=== PATIENT | male | born 1955 | race Caucasian/White ===

== ENCOUNTER 2021-05-01 06:31 | Emergency (ER) | payer MEDICARE, SELFPAY ==
[2021-05-01 06:43] LABS: Glucose Point of Care 215 mg/dl (65-105)
[2021-05-01 06:45] VITALS: BP 140/84; PULSE 71; RESP 16; TEMP 36.9; O2SAT 98
--- NOTE | 2021-05-01 07:36 | ED.GENADULT ---
HPI - General Adult General Chief complaint: Recheck/Abnormal Lab/Rx Stated complaint: Low blood sugar Time Seen by Provider: 05/01/21 07:01 History of Present Illness HPI narrative: Patient is a 65-year-old male with history of type 2 diabetes who takes Metformin daily that presents to the ER with concern of low blood sugar. His Accu-Chek is showing readings in the 40s and now says low. Accu-Chek here shows a blood glucose of 210. He reports no symptoms including sweats/nausea/diaphoresis/confusion. Reports he has been eating doughnuts for the last day to keep his blood sugar her up despite his Accu-Cheks and gets low. Related Data Allergies Allergy/AdvReac Type Severity Reaction Status Date / Time rosuvastatin Allergy Unknown Unknown Verified 03/10/20 09:13 Review of Systems Review of Systems: All systems reviewed & are unremarkable except as noted in HPI and below Constitutional: Constitutional: Denies chills, Denies fever(s) and Denies weakness Gastrointestinal: Gastrointestinal: Denies abdominal pain, Reports diarrhea, Denies nausea and Denies vomiting Genitourinary: Genitourinary: Denies dysuria and Denies urinary frequency Neurologic: Denies focal weakness and Denies numbness PMFSH Past Medical History Medical History (Updated 05/01/21 @ 07:42 by Venkat Lee MD) Chronic thoracic back pain Coronary artery disease involving [place] coronary artery of [place] heart DM w/o complication type II, uncontrolled Mixed hyperlipidemia Family History Family History Father Cerebrovascular accident Family history of coronary artery disease Mother Family history of diabetes mellitus in first degree relative Social History Social History Smoking status: Never smoker Alcohol intake: never Exam Narrative: Exam Narrative: GENERAL: Well-appearing, well-nourished, and in no acute distress. HEAD: Normocephalic, atraumatic. EYES: PERRL and EOMI. CHEST: Clear to auscultation. No respiratory distress. HEART: Regular rate and rhythm. Normal peripheral pulses. ABDOMEN: Soft, nontender, nondistended. EXTREMITIES: Normal range of motion. No edema. NEURO: Alert and oriented x3. PSYCH: Normal mood and affect. Course Course Emergency Course: Patient without symptoms. Blood sugar is not at a critical level. Recommended patient that he change his sensor site. Also prescribe some additional blood testing supplies. Vital Signs Vital signs: Vital Signs Temperature 98.4 F 05/01/21 06:45 Pulse Rate 71 05/01/21 06:45 Respiratory Rate 16 05/01/21 06:45 Blood Pressure 140/84 05/01/21 06:45 Pulse Oximetry 98 05/01/21 06:45 Temperature 98.4 F 05/01/21 06:45 Pulse Rate 71 05/01/21 06:45 Respiratory Rate 16 05/01/21 06:45 Blood Pressure 140/84 05/01/21 06:45 Pulse Oximetry 98 05/01/21 06:45 Medical Decision Making Vital Signs Vital Signs: Vital Signs Temperature 98.4 F 05/01/21 06:45 Pulse Rate 71 05/01/21 06:45 Respiratory Rate 16 05/01/21 06:45 Blood Pressure 140/84 05/01/21 06:45 Pulse Oximetry 98 05/01/21 06:45 Temperature 98.4 F 05/01/21 06:45 Pulse Rate 71 05/01/21 06:45 Respiratory Rate 16 05/01/21 06:45 Blood Pressure 140/84 05/01/21 06:45 Pulse Oximetry 98 05/01/21 06:45 Lab Data Labs: Lab Results 05/01/21 Range/Units 06:40 POC Capillary Glucose 215 H (65-105) mg/dl Discharge Plan Discharge Clinical Impression: Elevated blood sugar Patient Disposition: Home, Self-Care Condition: Stable Instructions: Diabetic Hyperglycemia (ED) Additional Instructions: Resume your home Metformin. Purchase new blood testing supplies. Return the ER if you cannot keep down food or water, you have fever over 100.4 ?F, you have focal weakness or numbness in arm or leg, you have additional concerns. Prescript
[2021-05-01 07:48] VITALS: BP 139/80; PULSE 69; RESP 18; O2SAT 100
== END 2021-05-01 07:53 | disposition home or self-care (01) ==
PROVIDERS: Emergency Provider Emergency Medicine; PCP Family Medicine
DX: E11.649 Type 2 diabetes mellitus with hypoglycemia without coma (principal); I25.10 Atherosclerotic heart disease of native coronary artery without angina pectoris; E78.5 Hyperlipidemia, unspecified; Z79.84 Long term (current) use of oral hypoglycemic drugs
CPT/HCPCS: 82948; 99282

== ENCOUNTER 2021-08-04 01:58 | Day surgery (SDC) | payer MEDICARE, SELFPAY ==
[2021-07-26 09:39] VITALS: BMI 28.7
--- NOTE | 2021-08-04 10:00 | P.HP_ITS ---
History of Present Illness History of Present Illness Consent: Risks, benefits, and alternatives have been discussed and questions answered. Patient agrees to proceed with procedure. Chief complaint: neoplasm screening Narrative: Lion Buenrostro is a 65 year old male who is referred for colon cancer screening. Review of Systems Review of Systems: All systems reviewed & are unremarkable except as noted in HPI and below PMFSH Past Medical History Medical History BMI 29.0-29.9,adult Chronic thoracic back pain Coronary artery disease involving [place] coronary artery of [place] heart DM w/o complication type II, uncontrolled Mixed hyperlipidemia Screen for colon cancer Family History Family History Father Cerebrovascular accident Family history of coronary artery disease Mother Family history of diabetes mellitus in first degree relative Social History Social History Smoking status: Never smoker Alcohol intake: current Living arrangements: with family Spiritual care concerns: No Meds Home Medications and Allergies Home Medications Medication Instructions Recorded Confirmed Type flash glucose sensor #6 ea 02/07/21 07/25/21 Rx pravastatin 40 mg tablet 40 mg PO DAILY #90 tablet 03/20/21 07/26/21 Rx blood sugar diagnostic [FreeStyle #100 ea 05/01/21 07/25/21 Rx Test] flash glucose scanning reader #1 ea 05/01/21 07/25/21 Rx [FreeStyle B[place]bara 14 Day [place]] flash glucose sensor [FreeStyle #1 ea 05/01/21 07/25/21 Rx Bárbara 14 Day Sensor] lancets [FreeStyle Lancets] #100 ea 05/01/21 07/25/21 Rx dulaglutide 0.75 mg/0.5 mL 0.75 mg SUBCUT WEEKLY #2 ml 07/25/21 07/26/21 Rx subcutaneous pen injector meloxicam 15 mg tablet 15 mg PO DAILY #30 tablet 07/25/21 07/26/21 Rx metformin 1,000 mg PO BID 07/26/21 07/26/21 History Allergies Allergy/AdvReac Type Severity Reaction Status Date / Time rosuvastatin Allergy Unknown Unknown Verified 08/04/21 10:04 Exam Resp: Auscultation: clear to auscultation bilaterally Cardio: Rate: regular rate Rhythm: regular rhythm GI: GI Palp: Yes Soft to palpation and No Tenderness to palpation present (GI) Assessment and Plan Assessment and plan (1) Screen for colon cancer: Code(s): Z12.11 - Encounter for screening for malignant neoplasm of colon Status: Acute Assessment and Plan: Colonoscopy with possible biopsy or polypectomy or cautery or injection of substances.
[2021-08-04 10:07] VITALS: BP 148/81; PULSE 82; RESP 16; TEMP 36.2; O2SAT 98; BMI 29.5
[2021-08-04] MEDS: LACTATED RINGERS 1,000 ML 150 ML IV CONT (10:23)
[2021-08-04 10:25] LABS: Glucose Point of Care 154 mg/dl (65-105)
--- NOTE | 2021-08-04 10:45 | P.PNAN_ITS ---
Anes - Initial Pre Proc Eval Procedure: Operation Date: 08/04/21 10:30 Proposed Procedures p Screening Colonoscopy - Edmond Herrera MD Date/Time: 08/04/21 10:45 Surgeon: Edmond Herrera MD Pre Op Diagnosis: neoplasm screening Patient Data Age: 65 Gender: M Height: 1.75 m Weight: 90.8 kg Last Vital Signs Temp 97.1 F L 08/04/21 10:07 Pulse 82 08/04/21 10:07 Resp 16 08/04/21 10:07 BP 148/81 H 08/04/21 10:07 Pulse Ox 98 08/04/21 10:07 Allergies Allergy/AdvReac Type Severity Reaction Status Date / Time rosuvastatin Allergy Unknown Unknown Verified 08/04/21 10:04 Home Medications Medication Instructions Recorded Confirmed Type flash glucose sensor #6 ea 02/07/21 07/25/21 Rx pravastatin 40 mg tablet 40 mg PO DAILY #90 tablet 03/20/21 08/04/21 Rx blood sugar diagnostic [FreeStyle #100 ea 05/01/21 07/25/21 Rx Test] flash glucose scanning reader #1 ea 05/01/21 07/25/21 Rx [FreeStyle B[place]bara 14 Day [place]] flash glucose sensor [FreeStyle #1 ea 05/01/21 07/25/21 Rx Bárbara 14 Day Sensor] lancets [FreeStyle Lancets] #100 ea 05/01/21 07/25/21 Rx dulaglutide 0.75 mg/0.5 mL 0.75 mg SUBCUT WEEKLY #2 ml 07/25/21 08/04/21 Rx subcutaneous pen injector meloxicam 15 mg tablet 15 mg PO DAILY #30 tablet 07/25/21 08/04/21 Rx metformin 1,000 mg PO BID 07/26/21 08/04/21 History Laboratory Tests 08/04/21 10:19 POC Capillary Glucose 154 mg/dl H mg/dl (65-105) Patient hx anesthesia problems: none Family hx anesthesia problems: none Results Review: All pre-operative results and documents have been reviewed as part of the pre-operative evaluation. [facility] Past Medical History Medical History BMI 29.0-29.9,adult Chronic thoracic back pain Coronary artery disease involving [place] coronary artery of [place] heart DM w/o complication type II, uncontrolled Mixed hyperlipidemia Screen for colon cancer Family History Family History Father Cerebrovascular accident Family history of coronary artery disease Mother Family history of diabetes mellitus in first degree relative Social History Social History Smoking status: Never smoker Alcohol intake: current Living arrangements: with family Spiritual care concerns: No Anes - Eval Final PreProcedure Day of Procedure 08/04/21 10:45 Patient weight: obese Heart: regular rate and rhythm Lungs: clear to auscultation Airway: Mallampati scale class II Neurological: alert and oriented Last oral intake: >/= 8 hours ASA classification: III Emergent: no Anesthetic plan: proceed Anesthesia type and monitoring: general GIVS and standard monitoring Results Review: All pre-operative results and documents have been reviewed as part of the pre-operative evaluation. Informed Consent: The patient's anesthetic plan and its attendant risks and benefits were discussed with the patient/family/POA. Questions were solicited and answers provided to the satisfaction of the patient/family/POA.
[2021-08-04 11:00] VITALS: BP 125/72; PULSE 79; RESP 18; O2SAT 95
[2021-08-04 11:10] VITALS: BP 114/74; PULSE 76; RESP 18; O2SAT 97
[2021-08-04 11:20] VITALS: BP 126/81; PULSE 76; RESP 18; O2SAT 96
== END 2021-08-04 11:34 | disposition home or self-care (01) ==
PROVIDERS: PCP Family Medicine; Visit Provider Internal Medicine Gastroenterology
PROC: 0DJD8ZZ Inspection of Lower Intestinal Tract, Via Natural or Artificial Opening Endoscopic (ICD-10-PCS; CPT 45378; principal; 2021-08-04 10:30)
DX: Z12.11 Encounter for screening for malignant neoplasm of colon (principal); K57.30 Diverticulosis of large intestine without perforation or abscess without bleeding; Z79.84 Long term (current) use of oral hypoglycemic drugs; E11.9 Type 2 diabetes mellitus without complications; I25.10 Atherosclerotic heart disease of native coronary artery without angina pectoris; E78.2 Mixed hyperlipidemia; E66.9 Obesity, unspecified; Z68.29 Body mass index [BMI] 29.0-29.9, adult
CPT/HCPCS: G0121; 82948; J2704; J7120

== ENCOUNTER 2021-08-07 15:44 | Emergency (ER) | payer MEDICARE, SELFPAY ==
--- NOTE | ~2021-08-07 | XR_ITS ---
EXAMINATION: XR tibia fibula LT 2V DATE: 08/07/2021 16:23 INDICATION: Left lower leg injury. TECHNIQUE: 2 views of left tibia and fibula were obtained. COMPARISON: None. FINDINGS: Bone alignment is normal. No fracture. There is mild left knee osteoarthritis. There are de la cruz rgical clips in the medial distal lower leg. There is soft tissue swelling anterior to the proximal t ibial diaphysis. IMPRESSION: 1. Mild left knee osteoarthritis. Reviewed, dictated and finalized at location A.
[2021-08-07 15:53] VITALS: BP 140/70; PULSE 74; RESP 18; TEMP 36.7; O2SAT 99
--- NOTE | 2021-08-07 15:53 | ED.LOWEXIN ---
HPI - Extremity Injury (Lower) General Chief Complaint: Extremity Injury, Lower Stated Complaint: Lt lower leg Time Seen by Provider: 08/07/21 16:34 Source: patient and RN notes reviewed Mode of arrival: ambulatory Limitations: no limitations History of Present Illness HPI Narrative: 65-year-old male presents with concern for injury to the left lower leg. Reports prior to arrival he had a heavy car battery fall out of the car and hit his leg. He reports a large painful lump on the front of his leg. He denies intervention. Denies pain worsens with weightbearing. Denies distal pain, decreased sensation, decreased range of motion MD complaint: leg injury Related Data Allergies Allergy/AdvReac Type Severity Reaction Status Date / Time No Known Allergies Allergy Verified 08/07/21 16:14 Review of Systems Review of Systems: CONSTITUTIONAL: Denies malaise, chills, sweats, or fever. SKIN: Reports swollen painful bump with a abrasion to the front of the left lower leg MUSCULOSKELETAL: Reports left lower leg pain NEUROLOGIC: Denies numbness, weakness All systems reviewed & are unremarkable except as noted in HPI and below PMFSH Past Medical History Medical History BMI 29.0-29.9,adult Chronic thoracic back pain Coronary artery disease involving [place] coronary artery of [place] heart DM w/o complication type II, uncontrolled Mixed hyperlipidemia Screen for colon cancer Family History Family History Father Cerebrovascular accident Family history of coronary artery disease Mother Family history of diabetes mellitus in first degree relative Social History Social History Smoking status: Never smoker Alcohol intake: current Spiritual care concerns: No Comments At time of signature, agree with nursing past medical, surgical, social and family history. There is no relevant family history pertinent to the presenting complaint Exam Narrative: GENERAL: Well-appearing, well-nourished, and in no acute distress. HEAD: Normocephalic, atraumatic. EYES: PERRLA, conjunctivae clear NECK: Supple. CHEST: Speaks in full sentences. No respiratory distress. HEART: Regular rate and rhythm. Normal and equal peripheral pulses. EXTREMITIES: Left lower leg has grossly normal strength, grossly normal range of motion. 10 cm x 6 cm hematoma noted to the mid anterior lower left leg. No no devitalized tissue or atrophy, no trophic changes, alignment normal, nearby joints and structures intact. Skin warm, dry, pink. SKIN: Warm, dry, no rash. Superficial abrasion noted to the anterior mid lower left leg NEURO: Alert and oriented x3. PSYCH: Normal mood and affect Course Course Emergency Course: Patient is aware of diagnosis, understands and agrees to treatment plan. Anticipatory guidance given. Patient agrees to follow-up as directed and is aware of reasons to seek care at the emergency department. Portions of this record may have been created with voice recognition software Vital Signs Vital signs: Reviewed. MDM - Extremity Injury (Lower) MDM Narrative Medical decision making narrative: Exam findings and imaging show no acute concerns or changes; patient is non-toxic appearing and is in no distress. Patient is appropriate for outpatient treatment and follow-up. Imaging Data Radiologist's impression: EXAMINATION: XR tibia fibula LT 2V DATE: 08/07/2021 16:23 INDICATION: Left lower leg injury. TECHNIQUE: 2 views of left tibia and fibula were obtained. COMPARISON: None. FINDINGS: Bone alignment is normal. No fracture. There is mild left knee osteoarthritis. There are surgical clips in the medial distal lower leg. There is soft tissue swelling anterior to the proximal tibial diaphysis. IMPRESSION: 1. Mild left knee osteoarthritis. Critical Care Time Critical Care Time Crit
== END 2021-08-07 16:49 | disposition home or self-care (01) ==
PROVIDERS: Emergency Provider Nurse Practitioner; PCP Family Medicine
DX: S80.12XA Contusion of left lower leg, initial encounter (principal); W20.8XXA Other cause of strike by thrown, projected or falling object, initial encounter; E11.9 Type 2 diabetes mellitus without complications; E78.2 Mixed hyperlipidemia; I25.10 Atherosclerotic heart disease of native coronary artery without angina pectoris
CPT/HCPCS: 73590; 99213; G0463

== ENCOUNTER → 2021-12-15 09:24 | Outpatient (CLI) | payer MEDICARE, SELFPAY ==
--- NOTE | ~2021-12-15 | MR_ITS ---
EXAMINATION: MR cervical spine wo con EXAM DATE: 12/15/2021 10:09 INDICATION: M54.2 - Cervicalgia . TECHNIQUE: Multi-sequential, multiplanar MR images of the cervical spine were obtained without contra st. Axial T2, axial T2 MERGE sequence. Sagittal T1, T2, T2 fat saturation images also obtained. Th ere is no prior study for comparison. FINDINGS: The vertebral bodies are aligned in the AP dimension. In there is mild to moderate cervica l disc disease at C3-4, 5-6 and 6-7. The spinal cord signal intensity and intrinsic morphology is nor mal. Cervicomedullary junction is normal in appearance. There are no suspicious marrow signal abnorma lities. Paraspinal soft tissue is unremarkable. Level by level evaluation: C2-C3: Disc does not extend beyond the endplate margin. Uncovertebral joint arthropathy: None. Facet joint arthropathy: Mild. Neural foraminal stenosis: No stenosis. Central canal stenosis: No stenosis. C3-C4: There is a mild diffuse disc bulge. Uncovertebral joint arthropathy: Mild to moderate bilateral. Facet joint arthropathy: Mild bilateral. Neural foraminal stenosis: Moderate right, mild to moderate left. Central canal stenosis: Mild. C4-C5: Disc does not extend beyond the endplate margin. Uncovertebral joint arthropathy: Mild bilateral. Facet joint arthropathy: Mild bilateral. Neural foraminal stenosis: No stenosis. Central canal stenosis: No stenosis. C5-C6: There is a mild diffuse disc bulge. Uncovertebral joint arthropathy: Moderate to severe right, mild to moderate left. Facet joint arthropathy: Mild to moderate bilateral. Neural foraminal stenosis: Moderate to severe right, mild left. Central canal stenosis: Mild. C6-C7: There is a mild diffuse disc bulge. Uncovertebral joint arthropathy: Moderate to severe right, moderate left. Facet joint arthropathy: Mild bilateral. Neural foraminal stenosis: Moderate to severe right, mild to moderate left. Central canal stenosis: Mild. C7-T1: Disc does not extend beyond the endplate margin. Uncovertebral joint arthropathy: Mild to moderate right, mild left. Facet joint arthropathy: Moderate right, mild left. Neural foraminal stenosis: Mild right. Central canal stenosis: No stenosis. IMPRESSION: 1. C5-6 and 6-7 moderate to severe right neural foraminal stenosis. 2. Less spondylosis other levels. Reviewed, dictated and finalized at location B. 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
--- NOTE | ~2021-12-15 | CT_ITS ---
EXAMINATION: CT abdomen pelvis w con DATE: 12/15/2021 10:31 INDICATION: Left upper quadrant abdominal pain TECHNIQUE: Computed tomography (CT) of the abdomen and pelvis was performed with 100 cc Omnipaque 350 intravenous contrast. Automated exposure control and iterative reconstruction technique were employe d. Exam dose: 795.98 mGy-cm total exam DLP. COMPARISON: None. FINDINGS: There is a linear discoid density in the left lower lobe consistent with scarring or less l ikely discoid atelectasis. The lung bases are clear of infiltrate or consolidation. Status post sternotomy. Heart size is within normal range. No pericardial or pleural effusion. Small sliding hiatal hernia. The liver, gallbladder, bile ducts, spleen, pancreas, pancreatic duct, adrenal glands and kidneys faustino ear normal. 3 cm duodenal diverticulum. Normal caliber of the abdominal aorta. No intraperitoneal or retroperitoneal or pelvic mass lesion or adenopathy or ascites. There is prostate enlargement and calcification. The prostate impresses the base of the urinary bladd er. There is mild diffuse bladder wall thickening. There are numerous diverticula of the sigmoid and descending colon and a diverticulum at the splenic flexure and another at the hepatic flexure. No CT evidence of diverticulitis. Normal appendix. No bowel wall thickening,, pneumatosis or bowel obstruction or intraperitoneal free air. Small fat-containing umbilical hernia. Small fat-containing left inguinal hernia. No suspicious osteolytic or osteoblastic lesions are noted. This mild degenerative change of the thor acic and lumbar spine and hips. IMPRESSION: Small sliding hiatal hernia 3 cm duodenal diverticulum Diverticulosis of the colon; no CT evidence of diverticulitis Prostate enlargement and calcification Reviewed, dictated and finalized at Location [facility]. Reviewed, dictated and finalized at location A. 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
[2021-12-15 10:24] LABS: Estimated Glomerular Filt Rate > 60
== END ==
PROVIDERS: PCP Family Medicine; Visit Provider Family Medicine
DX: R10.12 Left upper quadrant pain (principal); M54.2 Cervicalgia; K44.9 Diaphragmatic hernia without obstruction or gangrene; K57.10 Diverticulosis of small intestine without perforation or abscess without bleeding; K57.30 Diverticulosis of large intestine without perforation or abscess without bleeding; N40.1 Benign prostatic hyperplasia with lower urinary tract symptoms
CPT/HCPCS: 72141; 74177; Q9967

== ENCOUNTER 2022-05-13 12:53 | Emergency (ER) | payer MEDICARE, SELFPAY ==
[2022-05-13 13:14] VITALS: BP 134/69; PULSE 71; RESP 18; TEMP 36.8; O2SAT 98
--- NOTE | 2022-05-13 13:25 | ED.GENADULT ---
HPI - General Adult General Chief complaint: Skin/Abscess/Foreign Body Stated complaint: insect bite Time Seen by Provider: 05/13/22 13:26 Source: patient Mode of arrival: ambulatory Limitations: no limitations History of Present Illness HPI narrative: 66-year-old male patient presents to the [facility] with what he thinks might be a bug bite to the right inner upper thigh. Patient states is been there for about 2 days now. Denies pulling any ticks off of him and states that he has not been in the [place] or being outside doing any type of mowing or yard work. Patient states that it does itch but denies any fevers, body aches, chills or any other sick symptoms. Patient states he is concerned because his son has had Lyme disease before in the past and he wanted to make sure this was not Lyme's disease. Related Data Allergies Allergy/AdvReac Type Severity Reaction Status Date / Time No Known Allergies Allergy Verified 05/13/22 13:22 Review of Systems Review of Systems: CONSTITUTIONAL: Denies fever, chills, or sweats. EYES: Denies visual changes, redness, or discharge. ENT: Denies rhinorrhea, congestion, sore throat, or otalgia. CARDIOVASCULAR: Denies chest pain, palpitations, or edema. RESPIRATORY: Denies cough or dyspnea. GASTROINTESTINAL: Denies abdominal pain, nausea, vomiting, or diarrhea. GENITOURINARY: Denies dysuria or hematuria. SKIN: Positive rash with itching to right upper thigh MUSCULOSKELETAL: Denies back pain, joint pain, or myalgia. NEUROLOGIC: Denies headache, numbness, or weakness. PSYCHIATRIC: Denies anxiety or depression. [facility] Past Medical History Medical History Abnormal MRI, cervical spine BMI 29.0-29.9,adult Cervical pain (neck) Chronic thoracic back pain Coronary artery disease involving [place] coronary artery of [place] heart (Unknown) DM w/o complication type II, uncontrolled LUQ abdominal pain Mixed hyperlipidemia Screen for colon cancer Family History Family History Father Cerebrovascular accident Family history of coronary artery disease Mother Family history of diabetes mellitus in first degree relative Social History Social History Alcohol intake: current Spiritual care concerns: No Comments At the time of my signature I agree with nursing past medical history, surgical, social, and family history. There is no relevant family history pertinent to the presenting complaint. Exam Narrative: GENERAL: Well-appearing, well-nourished, and in no acute distress. HEAD: Normocephalic, atraumatic. EYES: PERRLA and EOMI. ENT: Nares clear, no rhinorrhea or epistaxis. Mucous membranes moist. NECK: Supple. No lymphadenopathy CHEST: Clear to auscultation. No respiratory distress. HEART: Regular rate and rhythm. No murmur heard. Normal peripheral pulses. ABDOMEN: Soft, nontender, nondistended, normal active bowel sounds. EXTREMITIES: Normal range of motion. No edema. SKIN: Warm, dry, patient has an erythemic circular rash with notable satellite areas around the area with what appears to be somewhat of a clearing center. Measuring about 2 cm x 2 cm. Slightly raised. Patient does complain of itching to the area. No open wounds or drainage noted at this time. NEURO: No focal deficits. Alert and oriented x3. Course Course Level of Care: Express Care Visit Vital Signs Vital signs: Vital Signs Temperature 36.8 C 05/13/22 13:14 Pulse Rate 71 05/13/22 13:14 Respiratory Rate 18 05/13/22 13:14 Blood Pressure 134/69 05/13/22 13:14 Pulse Oximetry 98 05/13/22 13:14 Oxygen Delivery Room Air 05/13/22 13:14 Temperature 36.8 C 05/13/22 13:14 Pulse Rate 71 05/13/22 13:14 Respiratory Rate 18 05/13/22 13:14 Blood Pressure 134/69 05/13/22 13:14 Pulse Oximetry 98 05/13/22 13:14 Oxygen Delivery Room
== END 2022-05-13 13:38 | disposition home or self-care (01) ==
PROVIDERS: Emergency Provider Nurse Practitioner Family; PCP Family Medicine
DX: B35.4 Tinea corporis (principal); I25.10 Atherosclerotic heart disease of native coronary artery without angina pectoris; E11.9 Type 2 diabetes mellitus without complications; E78.2 Mixed hyperlipidemia
CPT/HCPCS: 99213; G0463

== ENCOUNTER 2023-06-21 13:27 | Emergency (ER) | payer MEDICARE, SELFPAY ==
--- NOTE | 2023-06-21 13:33 | ED.GENADULT ---
HPI - General Adult General Chief complaint: Back Pain/Injury Stated complaint: back pain Time Seen by Provider: 06/21/23 13:42 Source: patient, RN notes reviewed and old records reviewed Mode of arrival: ambulatory Limitations: no limitations History of Present Illness HPI narrative: 67-year-old male presents to the [facility] with complaints of mid right back pain for 2 weeks. States that aspirin makes it a little bit better. Denies any numbness or tingling. No direct injury. Walks with a normal gait. States he has tried calling his primary care the office close States he has been moving heavy objects recently Onset (ago): week(s) (2) Related Data Allergies Allergy/AdvReac Type Severity Reaction Status Date / Time No Known Allergies Allergy Verified 06/21/23 13:53 Review of Systems Review of Systems: All systems reviewed & are unremarkable except as noted in HPI and below Constitutional: Constitutional: Reports no additional constitutional complaints Eyes: Eyes: Reports no additional eye complaints ENT: Reports system reviewed and no additional complaints, except as documented Cardiovascular: Cardiovascular: Reports no additional cardiovascular complaints, Denies chest pain and Denies dyspnea Respiratory: Respiratory: Reports no additional respiratory complaints, Denies chest congestion, Denies cough and Denies dyspnea Gastrointestinal: Gastrointestinal: Reports no additional gastrointestinal complaints, Denies abdominal pain, Denies nausea and Denies vomiting Musculoskeletal: Musculoskeletal: Reports as per HPI and Reports back pain Integumentary/Breasts: Skin/Breast: Reports system reviewed and no additional complaints, except as docu Neurologic: Reports system reviewed and no additional complaints, except as documented Psychiatric: Psychiatric: Reports no additional psychiatric complaints Allergic/Immunologic: Allergic/Immunologic: Reports no additional allergic/immunologic complaints [facility] Past Medical History Medical History Abnormal MRI, cervical spine BMI 27.0-27.9,adult BMI 29.0-29.9,adult Cervical pain (neck) Chronic thoracic back pain Coronary artery disease involving nome coronary artery of nome heart (Unknown) Dermatitis Diabetic retinopathy DM w/o complication type II, uncontrolled LUQ abdominal pain Mixed hyperlipidemia Screen for colon cancer Stressful life events affecting family and household Family History Family History Father Cerebrovascular accident Family history of coronary artery disease Mother Family history of diabetes mellitus in first degree relative Social History Social History Smoking status: Never smoker Alcohol intake: current Living arrangements: with family Spiritual care concerns: No Comments At the time of my signature, I reviewed and agree with the nursing past medical, surgical, social, and family history. There is no relevant family history pertinent to the patient complaint. Exam Const: General: cooperative, healthy appearing, comfortable, no acute distress, well developed, alert and well nourished Nutritional Appearance: well nourished Orientation/consciousness: patient oriented x3 Limitations: no limitations HENMT: Head: normal to inspection Ears: hearing grossly normal bilaterally and external ears normal Face/Nose/Sinus: Normal external nose present, Normal nares present, Normal nasal mucous membranes and turbinates present and normal facial exam Face and sinus: normal facial exam Eyes: General: appearance normal, both eyes and all related structures Alignment and Position: alignment normal Periorbital: periorbital findings normal Pupils: Equal, round and reactive pupils present EOM: EOMs intact bilaterally Neck: Neck: normal visual inspection, full ROM, no lymphadenopathy and no meningeal signs Chest: Chest palpati
[2023-06-21 13:48] VITALS: BP 129/62; PULSE 71; RESP 18; TEMP 36.2; O2SAT 97
== END 2023-06-21 13:58 | disposition home or self-care (01) ==
PROVIDERS: Emergency Provider Nurse Practitioner; PCP Family Medicine
DX: S29.012A Strain of muscle and tendon of back wall of thorax, initial encounter (principal); X58.XXXA Exposure to other specified factors, initial encounter; E11.319 Type 2 diabetes mellitus with unspecified diabetic retinopathy without macular edema; I25.10 Atherosclerotic heart disease of native coronary artery without angina pectoris; E78.2 Mixed hyperlipidemia
CPT/HCPCS: 99213; G0463

== ENCOUNTER → 2023-10-04 10:12 | Outpatient (CLI) | payer MEDICARE, SELFPAY ==
--- NOTE | ~2023-10-04 | US_ITS ---
US abdomen limited INDICATION: Right upper quadrant distention PROCEDURE: Realtime right upper abdominal ultrasound. COMPARISON: No prior studies for comparison. FINDINGS: The pancreas is normal without focal mass or pancreatic ductal dilation. Liver echotexture is normal without focal mass or intrahepatic biliary dilatation. There is normal directional flow i n the portal vein. The gallbladder is normal without stones, gallbladder wall thickening or pericholecystic fluid. Comm on bile duct measures 3 mm. No sonographic Sargent's sign. IMPRESSION: 1: Normal limited abdominal ultrasound. Reviewed, dictated and finalized at location B. ER
== END ==
PROVIDERS: PCP Family Medicine; Visit Provider Nurse Practitioner Family
DX: R14.0 Abdominal distension (gaseous) (principal)
CPT/HCPCS: 76705

== ENCOUNTER 2023-10-18 07:04 | Outpatient (CLI) | payer MEDICARE, SELFPAY ==
--- NOTE | ~2023-10-18 | CT_ITS ---
CT of the Abdomen and Pelvis: Indication: Right abdominal swelling Technique: 2.5 mm axial scans were obtained through the abdomen and pelvis following intravenous adm inistration of 100 cc of Omnipaque 350. Dose reduction technique was used on this scan by utilizing a utomated exposure control and iterative reconstruction technique. The dose-length product (DLP) was 7 13.61 mGy-cm. COMPARISON: 12/15/2021 Findings: Scans through the lung bases are unremarkable. The liver, spleen, pancreas, gallbladder, adrenals and kidneys are within normal limits. No evidence of aortic aneurysm. No lymphadenopathy. No bowel obstruction or bowel wall thickening. Duodenal diverticulum noted. There is no evidence to s uggest acute appendicitis. Small fat-containing umbilical hernia noted. Images through the pelvis were performed. Urinary bladder unremarkable. Prostate gland is significant ly enlarged. No ascites. Impression: Small fat-containing umbilical hernia. Enlarged prostate gland. Reviewed, dictated and finalized at location . TEST EXAMINER Impression: Small fat-containing umbilical hernia. Enlarged prostate gland.
[2023-10-18 07:24] LABS: Estimated Glomerular Filt Rate > 60
== END 2023-10-18 07:05 | disposition home or self-care (01) ==
PROVIDERS: PCP Family Medicine; Visit Provider Nurse Practitioner Family
DX: K42.9 Umbilical hernia without obstruction or gangrene (principal); N40.0 Benign prostatic hyperplasia without lower urinary tract symptoms; R97.20 Elevated prostate specific antigen [PSA]
CPT/HCPCS: 74177; Q9967

== ENCOUNTER 2024-05-31 14:38 | Emergency (ER) | payer MEDICARE, SELFPAY ==
[2024-05-31 14:50] VITALS: BP 140/84; PULSE 92; RESP 18; TEMP 36.3; O2SAT 98
[2024-05-31 15:49] VITALS: BP 127/86; PULSE 85; RESP 18; TEMP 36.6; O2SAT 98
--- NOTE | 2024-05-31 16:18 | ED.GENADULT ---
HPI - General Adult General Chief complaint: Unspecified Stated complaint: left sciatica pain Time Seen by Provider: 05/31/24 16:00 History of Present Illness HPI narrative: 68-year-old male present to the emergency department for evaluation for worsening left-sided sciatica pain. Patient does have a prior history of sciatica and states his current sciatica has been bothering him for the last few weeks. Patient has been following up with physical therapy but feels that this is worsening his symptoms. Patient has been taking Tylenol for pain control doing physical therapy but has not been on any other medications. Describes left hip pain that radiates down to his foot intermittently. Patient denies any change in bowel or bladder habits. Patient denies any associated numbness or weakness. Patient denies any falls or specific incident of injury. Patient suspects that this had ago was initially caused by him over reaching in order to put something on the roof of a vehicle. Related Data Allergies Allergy/AdvReac Type Severity Reaction Status Date / Time No Known Allergies Allergy Verified 05/31/24 14:55 Review of Systems Review of Systems: All systems reviewed & are unremarkable except as noted in HPI and below PMFSH Past Medical History Medical History Abnormal MRI, cervical spine BMI greater than 30 Cervical pain (neck) Chronic thoracic back pain Coronary artery disease involving [place] coronary artery of [place] heart (Unknown) Dermatitis Diabetic retinopathy DM w/o complication type II, uncontrolled Low back strain LUQ abdominal pain Mixed hyperlipidemia Screen for colon cancer Stressful life events affecting family and household Family History Family History Father Cerebrovascular accident Family history of coronary artery disease Acute myocardial infarction Mother Family history of diabetes mellitus in first degree relative Diabetes mellitus Sibling No problems noted. 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 HEAD: normocephalic, atraumatic. EYES: PERRLA/EOMI, conjunctivae clear. NOSE: Normal no drainage NECK: Supple. No adenopathy, no masses. RESPIRATORY: Airway patent, respirations nonlabored. Clear to auscultation bilaterally, no rales, rhonchi, wheezing. CARDIOVASCULAR: Regular rate and rhythm without murmurs rubs or gallops. ABDOMINAL: Soft, nontender, nondistended, normal bowel sounds MUSCULOSKELETAL: Left hip tenderness to palpation, NEURO: Alert. Cranial nerves II through XII intact. Neurologically intact SKIN: Warm, dry. Normal Color Course Vital Signs Vital signs: Vital Signs Temperature 97.4 F L 05/31/24 14:50 Pulse Rate 92 05/31/24 14:50 Respiratory Rate 18 05/31/24 14:50 Blood Pressure 140/84 05/31/24 14:50 Pulse Oximetry 98 05/31/24 14:50 Oxygen Delivery Room Air 05/31/24 14:50 Temperature 97.8 F 05/31/24 15:49 Pulse Rate 73 05/31/24 16:40 Respiratory Rate 18 05/31/24 16:40 Blood Pressure 140/81 05/31/24 16:40 Pulse Oximetr
[2024-05-31] MEDS: CYCLOBENZAPRINE HCL 10 MG TABLET PO (16:38)
[2024-05-31 16:40] VITALS: BP 140/81; PULSE 73; RESP 18; O2SAT 95
== END 2024-05-31 16:41 | disposition home or self-care (01) ==
LOC: ANHED 16:30
PROVIDERS: Emergency Provider Emergency Medicine; PCP Family Medicine
DX: M54.32 Sciatica, left side (principal); I25.10 Atherosclerotic heart disease of native coronary artery without angina pectoris; E11.9 Type 2 diabetes mellitus without complications
CPT/HCPCS: 99283; A9270

== ENCOUNTER 2024-06-15 13:21 | Outpatient (CLI) | payer MEDICARE, SELFPAY ==
--- NOTE | ~2024-06-15 | XR_ITS ---
3 VIEWS LUMBAR SPINE Ordering provider: GAY Love History: . S39.012A - Strain of muscle, fascia and tendon of lower b... . Comparison: None. FINDINGS: VERTEBRAL BODIES:Chronic loss of height is seen at the level of L1 anteriorly. No visible fracture o r subluxation. Degenerative changes of the spine. DISK SPACES: Normal. Facet joint disease at the level of L4-L5 and L5-S1. SOFT TISSUES: Normal. IMPRESSION: No acute osseous abnormality lumbar spine. Reviewed, dictated and finalized at location A.
== END 2024-06-15 13:22 ==
PROVIDERS: PCP Family Medicine; Visit Provider Nurse Practitioner Family
DX: S39.012A Strain of muscle, fascia and tendon of lower back, initial encounter (principal)
CPT/HCPCS: 72114

== ENCOUNTER 2024-07-29 13:15 | Outpatient (CLI) | payer MEDICARE, SELFPAY ==
--- NOTE | ~2024-07-29 | XR_ITS ---
[id number] Ordering provider: Maryam Alba, [facility] History: . M79.672 - Pain in left foot . Comparison: None. FINDINGS: BONES: No acute fracture or dislocation. Calcaneus spur. Ossification of the insertion of the tendo Achilles. Small chip of bone is seen near to the middle toe distal phalanx base which may be an old fracture. JOINT SPACES: Narrowing of the proximal interphalangeal joints. No tarsal coalition. SOFT TISSUES: Vascular calcifications. IMPRESSION: No acute osseous abnormality left foot. Reviewed, dictated and finalized at location A.
== END 2024-07-29 13:16 | disposition home or self-care (01) ==
LOC: MICIMG 13:16
PROVIDERS: PCP Family Medicine; Visit Provider Physician Assistant Medical
DX: M79.672 Pain in left foot (principal)
CPT/HCPCS: 73630

== ENCOUNTER 2024-08-14 14:57 | Outpatient (CLI) | payer MEDICARE, SELFPAY ==
--- NOTE | ~2024-08-14 | MR_ITS ---
EXAMINATION: MR lumbar spine wo con DATE: 08/14/2024 15:36 INDICATION: Low back pain. Sciatica. TECHNIQUE: Magnetic resonance imaging (MRI) of the lumbar spine was performed without intravenous con trast. Sequences included sagittal T2-weighted FSE, sagittal T2-weighted FS FSE, sagittal T1-weighted FSE, and axial T2-weighted FSE. COMPARISON: Lumbar spine radiographs 06/15/2024 FINDINGS: Alignment is normal. There is mild chronic anterior wedging of T11-L2 vertebral bodies. The re is mildly decreased disc height at L1-L2. The distal spinal cord signal intensity is normal. The c onus medullaris is at L1-L2. The following disc levels are specifically discussed: L1-L2: The disc is bulging and has an annular fissure. There is mild bilateral facet joint osteoarthr itis. There is no neural foraminal stenosis. There is mild central canal stenosis. L2-L3: The disc does not extend beyond the endplate margin. There is mild bilateral facet joint osteo arthritis. There is no neural foraminal stenosis. There is no central canal stenosis. L3-L4: The disc is bulging. There is mild right and moderate left facet joint osteoarthritis. There i s mild bilateral neural foraminal stenosis. There is no central canal stenosis. L4-L5: The disc is bulging. There is severe bilateral facet joint osteoarthritis. There is mild right and moderate left neural foraminal stenosis. There is mild central canal stenosis. L5-S1: The disc is bulging. There is severe bilateral facet joint osteoarthritis. There is mild bilat eral neural foraminal stenosis. There is no central canal stenosis. IMPRESSION: 1. Moderate left neural foraminal stenosis at L4-L5. Otherwise mild lumbar spondylosis. Reviewed, dictated and finalized at location A. IMPRESSION: 1. Moderate left neural foraminal stenosis at L4-L5. Otherwise mild lumbar spon dylosis.
== END 2024-08-14 14:58 | disposition home or self-care (01) ==
LOC: GOSHIMG 14:58
PROVIDERS: PCP Family Medicine; Visit Provider Physician Assistant Medical
DX: M48.061 Spinal stenosis, lumbar region without neurogenic claudication (principal); M47.816 Spondylosis without myelopathy or radiculopathy, lumbar region
CPT/HCPCS: 72148